=== PATIENT | female | born 1965 | race Caucasian/White ===

== ENCOUNTER → 2016-09-14 | Outpatient (CLI) | payer MEDICARE ==
--- NOTE | 2016-09-14 11:30 | MR ---
MR brain with and without contrast HISTORY: Headaches, aneurysm Multiplanar multisequence and postcontrast images obtained through the brain following 15 cc MultiHan ce IV. Correlation to prior brain MR and MRA 07 August 2009 There is no restricted diffusion. There is no hemorrhage or hydrocephalus. Brain signal is essentiall y stable, couple of hyperintensities are present within the deep white matter as on prior exam. There is no mass effect or midline shift. Mild inflammatory change present in the ethmoid air cells. The o rbits are stable. Cerebellopontine angles, corpus callosum, pituitary, cervical medullary junction ar e stable and unremarkable there is no abnormal enhancement following contrast administration, normal vascular enhancement is noted. IMPRESSION: No significant abnormalities evident. Essentially stable exam..
--- NOTE | 2016-09-14 11:45 | MR ---
EXAMINATION TYPE: MR angio head wo con DATE OF EXAM: 09/14/2016 10:52 AM COMPARISON: MR brain same date and prior MRA brain dated 07 August 2009 HISTORY: Severe headaches, cerebral aneurysm TECHNIQUE: Time of flight images focusing on the [place] were performed without contrast. FINDINGS: Three-dimensional reconstructions. Exam is stable. No evident aneurysm or significant stenosis, no vascular malformation evident. IMPRESSION: Stable MRA brain, no significant abnormalities evident
== END | disposition home or self-care (01) ==
LOC: RADMRIMAIN 10:01
PROVIDERS: ATTEND Psychiatry & Neurology Neurology
DX: R51 Headache (principal)
CPT/HCPCS: 70544; 70553; A9577

== ENCOUNTER → 2017-02-10 | Outpatient (CLI) | payer MEDICARE ==
[2017-02-10 16:41] LABS: Anion Gap 12 mmol/L; Blood Urea Nitrogen 8 mg/dL (7-17); Calcium 9.9 mg/dL (8.4-10.2); Carbon Dioxide 21 mmol/L (22-30); Chloride 110 mmol/L (98-107); Creatine Kinase 59 U/L (30-135); Glucose 107 mg/dL (74-99); Non-African American GFR(MDRD) >60 (>60 ml/min/1.73 sqM); Potassium 4.3 mmol/L (3.5-5.1); Sodium 143 mmol/L (137-145)
[2017-02-10 17:29] LABS: Vitamin B12 481 pg/mL (239-931)
[2017-02-10 19:43] LABS: Rheumatoid Factor, Qnt <9 IU/mL (<12)
[2017-02-10 20:56] LABS: Hemoglobin A1C 5.7 % (4.2-6.1)
[2017-02-11 01:02] LABS: Treponemal Ab Non-Reactive (Non-Reactive)
[2017-02-11 01:47] LABS: ANA w/Reflex to Titer NEGATIVE (NEGATIVE)
== END | disposition home or self-care (01) ==
LOC: LABWHC1 15:52
PROVIDERS: ATTEND Psychiatry & Neurology Neurology
DX: M19.90 Unspecified osteoarthritis, unspecified site (principal); G62.9 Polyneuropathy, unspecified; M79.7 Fibromyalgia; R20.0 Anesthesia of skin; M25.50 Pain in unspecified joint
CPT/HCPCS: 36415; 80048; 82550; 82607; 82747; 83036; 84165; 84443; 85652; 86038; 86225; 86431; 86618; 86780

== ENCOUNTER → 2018-07-19 | Outpatient (CLI) | payer MEDICARE ==
--- NOTE | 2018-07-19 08:22 | US ---
EXAMINATION TYPE: US abdomen limited DATE OF EXAM: 07/19/2018 COMPARISON: CT abdomen December 26, 2008 CLINICAL HISTORY: R74.8 Abnormal Levels Of Other Serum Enzymes. Abn labs, NPO, GB removed EXAM MEASUREMENTS: Liver Length: 16.3 cm CHD: 0.4 cm Right Kidney: 11.0 x 4.3 x 3.9 cm Pancreas: Tail obscured by overlying bowel gas Liver: Increased attenuation, decreased visualization of vessels suggestive of fatty infiltrate Gallbladder: Surgically absent Evidence for sonographic Kelly's sign: neg CBD: Obscured by overlying bowel gas CHD: wnl Right Kidney: wnl Visualized pancreas is heterogeneous. Portions of the head and tail are suboptimally evaluated on una ges saved as are vascular by overlying bowel gas per technologist. Visualized liver is heterogeneousl y hyperechoic. Evaluation for focal masses is suboptimal due to the heterogeneity. Gallbladder is ian gically absent. IMPRESSION: Heterogeneous hyperechoic appearance of liver could reflect product of diffuse fatty infi ltration or underlying hepatocellular disease. No surrounding ascites is seen. Imaging guided random biopsy for tissue analysis can be performed if desired.
== END ==
LOC: RADUSWWP 07:51
DX: R74.8 Abnormal levels of other serum enzymes (principal)
CPT/HCPCS: 76705

== ENCOUNTER 2018-10-09 11:32 | Day surgery (SDC) | payer MEDICARE ==
[~2018-10-09 11:32] MED LIST: DEXAMETHASONE SOD PHOSPHATE 10 MG/ML 1 ML VIAL IV ONE; HYDROmorphone 0.5 MG/0.5 ML SYRINGE IVP PRN; LACTATED RINGERS 1,000 ML IV SCH; MORPHINE SULFATE 4 MG/ML SYRINGE IV PRN; ONDANSETRON 4 MG/2 ML VIAL IVP ONE; Pre Op ABX Message 1 EACH MISC MISCELLANE ONE
[2018-10-09 12:06] VITALS: RESP 16; TEMP 97.9
[2018-10-09 12:07] LABS: Glucose,Whole Blood 104 mg/dL (75-99)
[2018-10-09] MEDS ORDERED: DEXAMETHASONE SOD PHOS (MDV) 100 MG/10 ML VIAL IVP ONE (12:08)
[2018-10-09] MEDS ORDERED: ONDANSETRON 4 MG/2 ML VIAL IVP ONE (12:08)
[2018-10-09] MEDS ORDERED: LIDOCAINE 1% 20 ML VIAL (10MG/ML) FOR IV START INTRADERMA ONE (12:09)
[2018-10-09] MEDS ORDERED: fentaNYL (PF) 50 MCG/ML 2 ML AMP ONE (13:10)
[2018-10-09] MEDS ORDERED: PROPOFOL 10 MG/ML 20 ML VIAL IV ONE (13:10)
[2018-10-09] MEDS ORDERED: MIDAZOLAM 2 MG/2 ML VIAL ONE (13:10)
[2018-10-09] MEDS ORDERED: LIDOCAINE 1% INJ 10MG/ML (20 ML MDV) ONE (13:10)
[2018-10-09] MEDS ORDERED: LIDOCAINE 2% INJ 20 MG/ML SQ ONE (13:29)
[2018-10-09 14:09] VITALS: BP 112/68; PULSE 87
--- NOTE | 2018-10-09 18:54 | P.OP ---
Date of Procedure: 10/09/18 Procedure(s) Performed: PREOPERATIVE DIAGNOSES: 1. Right carpal tunnel syndrome POSTOPERATIVE DIAGNOSES: 1. Right carpal tunnel syndrome PROCEDURES PERFORMED: 1. Right open carpal tunnel release ANESTHESIA: Local plus IV sedation DEPUTY PROSECUTING ATTORNEY: None COMPLICATIONS: None ESTIMATED BLOOD LOSS: Less than 10 cc TOURNIQUET: 10 minutes DISPOSITION: To post-anesthesia care unit INDICATIONS: Mrs. Breaux is a 52-year-old female with a history of carpal tunnel syndrome, who presents today for carpal tunnel release. She has a history of recent distal radius fracture which is healed uneventfully except for the presence of carpal tunnel syndrome. The risks and potential complications of surgery have been discussed at length. The consent form has been signed. PROCEDURE: The patient was taken to the operating room after appropriate consent was obtained. IV sedation was initiated and the right upper extremity was prepared and draped in the usual aseptic fashion with Hibiclens prep. The path of the incision and deeper tissues were injected with 2% Lidocaine solution. A total of approximately 10 cc was used. Exsanguination of the limb with an Esmarch bandage was accomplished and the tourniquet was inflated to 200 mm Hg. The skin was then incised with a scalpel just through the dermis into the subcutaneous tissue. The location of the incision was at the base of the palm, at the radial border of the fourth ray. Blunt spreading using dissecting scissors was performed down to palmar fascia, which was then split using a #15 blade scalpel, revealing the underlying transverse carpal ligament. The transverse carpal ligament was incised with this blade under direct visualization at its ulnar border until it was fully released. The contents of the carpal tunnel were normal. No aberrant muscles, bone, tenosynovitis, or tumors were noted. The proximal and distal fascial releases were completed using gentle push technique with small dissecting scissors. Complete release was confirmed by visualization and palpation. Hemostasis was obtained with a bipolar electrocautery device as well as pressure over the wound after deflation of the tourniquet. Closure was performed with 4-0 nylon sutures in vertical mattress technique. Sterile dressing and light compressive dressing were applied and the patient was taken to recovery room in stable condition. Sponge and needle count were correct.
== END 2018-10-09 14:21 | disposition home or self-care (01) ==
LOC: OR 11:32
PROVIDERS: ATTEND Orthopaedic Surgery
DX: G56.01 Carpal tunnel syndrome, right upper limb (principal); I10 Essential (primary) hypertension; E78.5 Hyperlipidemia, unspecified; M19.90 Unspecified osteoarthritis, unspecified site; K21.9 Gastro-esophageal reflux disease without esophagitis; G43.719 Chronic migraine without aura, intractable, without status migrainosus; M79.7 Fibromyalgia; F17.200 Nicotine dependence, unspecified, uncomplicated; Z87.81 Personal history of (healed) traumatic fracture; Z79.84 Long term (current) use of oral hypoglycemic drugs; Z79.1 Long term (current) use of non-steroidal anti-inflammatories (NSAID); Z79.891 Long term (current) use of opiate analgesic; Z79.899 Other long term (current) drug therapy; Z88.8 Allergy status to other drugs, medicaments and biological substances
CPT/HCPCS: 64721; J2001 ×2; J2250; J2405; J3010; J1100; J2704

== ENCOUNTER → 2018-10-18 | Outpatient (CLI) | payer MEDICARE ==
[2018-10-18 20:26] LABS: Albumin 4.5 g/dL (3.80-4.90); Albumin/Globulin Ratio 2.25 (1.60-3.17); Bilirubin, Conjugated 0.2 mg/dL (0.20-0.40); Bilirubin,Unconjugated 0.4 mg/dL; Total Bilirubin 0.6 mg/dL (0.2-1.2); Total Protein 6.5 g/dL (6.2-8.2)
== END | disposition home or self-care (01) ==
LOC: LABWHC1 12:13
DX: R74.8 Abnormal levels of other serum enzymes (principal)
CPT/HCPCS: 36415; 80076

== ENCOUNTER → 2019-04-19 | Outpatient (CLI) | payer MEDICARE ==
[2019-04-19 12:38] LABS: Basophils # (A) 0.1 k/uL (0-0.2); Basophils % (A) 1 %; Eosinophils # (A) 0.2 k/uL (0-0.7); Eosinophils % (A) 2 %; HCT 47.2 % (34.0-46.0); HGB 15.7 gm/dL (11.4-16.0); Lymphocytes % (A) 41 %; MCH 30.2 pg (25.0-35.0); MCHC 33.3 g/dL (31.0-37.0); MCV 90.6 fL (80.0-100.0); Mean Platelet Volume 5.7; Monocytes # (A) 0.4 k/uL (0-1.0); Monocytes % (A) 4 %; Neutrophils # (A) 4.9 k/uL (1.3-7.7); Neutrophils % (A) 50 %; Platelet Count 344 k/uL (150-450); RBC 5.21 m/uL (3.80-5.40); RDW 12.5 % (11.5-15.5); WBC 9.7 k/uL (3.8-10.6)
[2019-04-19 12:56] LABS: INR 0.9 (<1.2); Prothrombin Time 9.7 sec (9.0-12.0)
[2019-04-19 21:06] LABS: African American GFR (CKD) 114.6 (60.0-200.0); Albumin 4.7 g/dL (3.80-4.90); Albumin/Globulin Ratio 2.24 (1.60-3.17); Anion Gap 8.5 mmol/L (4.00-12.00); Calcium 9.7 mg/dL (8.7-10.3); Carbon Dioxide 25.5 mmol/L (21.6-31.8); Globulin 2.1 g/dL (1.6-3.3); Potassium 4.7 mmol/L (3.5-5.5); Total Bilirubin 0.5 mg/dL (0.3-1.2); Total Protein 6.8 g/dL (6.2-8.2)
[2019-04-19 21:22] LABS: Protein, Total 6.9 g/dL (6.2-8.2)
[2019-04-19 22:05] LABS: Iron Saturation 27.06 (12.00-45.00)
[2019-04-19 22:15] LABS: Ferritin 231.7 ng/mL (10.0-291.0)
[2019-04-20 12:26] LABS: Albumin 4.39 g/dL (3.80-4.90); Gamma Globulin 0.35 g/dL (0.70-1.50)
[2019-04-20 12:47] LABS: Ceruloplasmin 32.1 mg/dL (20.0-60.0)
[2019-04-20 14:00] LABS: Liver/Kidney Microsome Antibod 1.3 UNITS (<=20)
== END | disposition home or self-care (01) ==
LOC: LABWHC1 12:06
PROVIDERS: ATTEND Nurse Practitioner
DX: R74.8 Abnormal levels of other serum enzymes (principal)
CPT/HCPCS: 36415; 80053; 82103; 82390; 82728; 83516; 83540; 83550; 84165; 85025; 85610; 86038; 86376

== ENCOUNTER → 2019-04-20 | Outpatient (CLI) | payer MEDICARE | END | disposition home or self-care (01) | LOC: LABWHC1 13:12 | PROVIDERS: ATTEND Nurse Practitioner | DX: R74.8 Abnormal levels of other serum enzymes (principal) | CPT/HCPCS: 36415; 81596 ==

== ENCOUNTER → 2020-05-08 | Outpatient (CLI) | payer MEDICARE ==
[2020-05-08 20:36] LABS: C-Peptide 2.76 ng/mL (0.81-3.85)
--- NOTE | 2020-05-12 09:23 | MM ---
Reason for exam: screening (asymptomatic). Last mammogram was performed 3 years and 10 months ago. History: Patient is postmenopausal and is nulliparous. Taking estrogen for 1 year beginning at age 38. Taking progesterone. Physical Findings: A clinical breast exam by your physician is recommended on an annual basis and results should be correlated with mammographic findings. MG 3D Screening Mammo W/Cad Bilateral CC and MLO view(s) were taken. Prior study comparison: July 01, 2016, bilateral MG 3d screening mammo w/cad. May 31, 2015, bilateral MG screening mammo w CAD. There are scattered fibroglandular densities. Benign appearing bilateral calcifications. No significant changes when compared with prior studies. ASSESSMENT: Benign, BI-RAD 2 RECOMMENDATION: Routine screening mammogram of both breasts in 1 year.
== END | disposition home or self-care (01) ==
LOC: RADMAMWWP 11:46
PROVIDERS: ATTEND Internal Medicine Geriatric Medicine
DX: Z12.31 Encounter for screening mammogram for malignant neoplasm of breast (principal); E11.9 Type 2 diabetes mellitus without complications; R10.84 Generalized abdominal pain; R94.5 Abnormal results of liver function studies; K75.81 Nonalcoholic steatohepatitis (NASH)
CPT/HCPCS: 77063; 77067; 82947; 83519; 83525; 84681; 86341

== ENCOUNTER → 2022-02-24 | Outpatient (CLI) | payer MEDICARE ==
--- NOTE | 2022-02-24 19:30 | BD ---
EXAMINATION TYPE: Axial Bone Density DATE OF EXAM: 02/24/2022 COMPARISON: NONE CLINICAL HISTORY: 56 years year old Female. ICD-10 CODE: M81.0 age related osteoporosis Height: 63.2 IN Weight: 165 LBS FRAX RISK QUESTIONS: Family History (Parent hip fracture): YES FATHER History of Fracture in Adulthood: RT WRIST FX AGE 52;RT ANKLE FX AGE 45 Secondary Osteoporosis: 3. Menopause before 45: TOTAL HYST AGE 38 Current Tobacco Use: YES RISK FACTORS HISTORY OF: History of Wrist Fracture: RT WRIST AGE 52 Active: YES Postmenopausal woman: TOTAL HYST AGE 38 Take estrogen and/or progesterone medications: NOT NOW How long: TOOK FOR 1 YEAR MEDICATIONS: Additional Medications: CALCIUM, INSULIN, EXAM MEASUREMENTS: Bone mineral densitometry was performed using the Baifendian System. Bone mineral density as measured about the Lumbar spine is: ----- L1-L4(G/cm2): 1.108 T Score Values are as follows: ----- L1: -0.7 ----- L2: -0.6 ----- L3: -0.6 ----- L4: -0.5 ----- L1-L4: -0.6 Bone mineral density BASELINE Bone mineral density about the R hip (g/cm2): 0.784 Bone mineral density about the L hip (g/cm2): 0.957 T Score values are as follows: -----R Neck: -1.8 -----L Neck: -0.6 -----R Total: -0.6 -----L Total: 0.6 Bone mineral density BASELINE FRAX%s: The graph provided illustrates a 25.0 chance for a major osteoporotic fx and a 2.8 chance for the hips probability for fx in 10 years time. IMPRESSION: Osteopenia (T Score between -2.5 and -1). There is slightly increased risk of fracture and the patient may be considered for treatment. Re-Screen 2-5 years. NOTE: T-SCORE=SD OF THE YOUNG ADULT MEAN.
--- NOTE | 2022-02-25 07:45 | MM ---
Reason for Exam: Screening (asymptomatic). Last mammogram was performed 1 year(s) and 10 month(s) ago. Patient History: Menarche at age 12. Patient has no children. Left ovary removed at age 38. Right ovary removed at age 38. Hysterectomy at age 38. Postmenopausal. Estrogen, starting at age 38 for 1 year. Used Progesterone. Risk Values: Danica 5 year model risk: 1.4%. NCI Lifetime model risk: 8.9%. Prior Study Comparison: 05/31/2015 Bilateral Screening Mammogram, [facility]. 07/01/2016 Bilateral Screening Mammogram, [facility]. 05/08/2020 Bilateral Screening Mammogram, [facility]. Tissue Density: There are scattered fibroglandular densities. Findings: Analyzed By CAD. There is no suspicious group of microcalcifications or new suspicious mass in either breast. Benign-appearing calcifications bilaterally. No significant change from prior examinations. Overall Assessment: Benign, BI-RAD 2 Management: Screening Mammogram of both breasts in 1 year. A clinical breast exam by your physician is recommended on an annual basis and results should be correlated with mammographic findings. Electronically signed and approved by: Josh Richter D.O.
== END | disposition home or self-care (01) ==
LOC: RADMAMWWP 07:16
PROVIDERS: ATTEND Internal Medicine Geriatric Medicine
DX: Z12.31 Encounter for screening mammogram for malignant neoplasm of breast (principal); M85.89 Other specified disorders of bone density and structure, multiple sites
CPT/HCPCS: 77063; 77067; 77080

== ENCOUNTER 2022-03-09 06:58 | Day surgery (SDC) | payer MEDICARE ==
[2022-03-05 08:43] VITALS: BMI 29.0
[~2022-03-09 06:58] MED LIST changes: -DEXAMETHASONE SOD PHOSPHATE 10 MG/ML 1 ML VIAL IV ONE; -HYDROmorphone 0.5 MG/0.5 ML SYRINGE IVP PRN; -MORPHINE SULFATE 4 MG/ML SYRINGE IV PRN; -ONDANSETRON 4 MG/2 ML VIAL IVP ONE; -Pre Op ABX Message 1 EACH MISC MISCELLANE ONE
[2022-03-09 07:32] LABS: Glucose,Whole Blood 139 mg/dL (70-110)
[2022-03-09 07:34] VITALS: TEMP 98
[2022-03-09] MEDS ORDERED: PROPOFOL 10 MG/ML 20 ML VIAL IV ONE (08:32)
--- NOTE | 2022-03-09 08:52 | P.PCN ---
Date of Procedure: 03/09/22 Procedure(s) Performed: BRIEF HISTORY: Patient is a 56-year-old pleasant white female scheduled for an elective colonoscopy as a part of positive cologuard. PROCEDURE PERFORMED: Colonoscopy with snare polypectomy. PREOPERATIVE DIAGNOSIS: Positive cologuard. IV sedation per Anesthesia. PROCEDURE: After informed consent was obtained, the patient, was brought into the endoscopy unit. IV sedation was administered by Anesthesia under continuous monitoring. Digital rectal examination was normal. Initially the Olympus CF-160 flexible video colonoscope was then inserted in the rectum, gradually advanced into the cecum without any difficulty. Careful examination was performed as the scope was gradually being withdrawn. Ileocecal valve and the appendiceal orifice were visualized and appeared normal. Prep was excellent. Mucosa of the cecum, appeared normal. In the ascending colon there was a 1 cm broad-based polyp removed by snare polypectomy. Rest of the ascending colon, transverse colon, descending colon, sigmoid colon, and rectum appeared normal. In the proximal rectum there was a 3 mm and 7 mm polyp removed by snare polypectomy. Retroflexion was performed in the rectum and no lesions were seen. The patient tolerated the procedure well. IMPRESSION: 1 cm broad-based ascending colon polyp status post polypectomy 3 mm and 7 mm proximal rectal polyp status post-snare polypectomy RECOMMENDATIONS: Findings of this examination were discussed with the patient as well as her family. She was advised to follow with the biopsy results. If the biopsy results adenoma she can have a repeat colonoscopy in 3 years.
[2022-03-09 09:02] LABS: Glucose,Whole Blood 138 mg/dL (70-110)
[2022-03-09 09:15] VITALS: RESP 18
[2022-03-09 10:06] VITALS: BP 134/80; PULSE 80
== END 2022-03-09 09:50 | disposition home or self-care (01) ==
LOC: ORWHC2ENDO 06:58
PROVIDERS: ATTEND Internal Medicine Gastroenterology
DX: D12.2 Benign neoplasm of ascending colon (principal); K62.1 Rectal polyp; E11.69 Type 2 diabetes mellitus with other specified complication; E78.5 Hyperlipidemia, unspecified; I10 Essential (primary) hypertension; Z88.8 Allergy status to other drugs, medicaments and biological substances; K76.0 Fatty (change of) liver, not elsewhere classified; Z79.899 Other long term (current) drug therapy; Z90.49 Acquired absence of other specified parts of digestive tract; Z79.4 Long term (current) use of insulin; F17.210 Nicotine dependence, cigarettes, uncomplicated; Z83.3 Family history of diabetes mellitus; Z82.49 Family history of ischemic heart disease and other diseases of the circulatory system; Z83.49 Family history of other endocrine, nutritional and metabolic diseases; Z80.8 Family history of malignant neoplasm of other organs or systems
CPT/HCPCS: 88305; 45385; J2704

== ENCOUNTER → 2023-06-06 | Outpatient (CLI) | payer MEDICARE ==
--- NOTE | 2023-06-06 08:12 | MM ---
Reason for Exam: Screening (asymptomatic). Last mammogram was performed 1 year(s) and 3 month(s) ago. Patient History: Menarche at age 12. Patient has no children. Left ovary removed at age 38. Right ovary removed at age 38. Hysterectomy at age 38. Postmenopausal. Estrogen, starting at age 38 for 1 year. Used Progesterone. Risk Values: Danica 5 year model risk: 1.4%. NCI Lifetime model risk: 8.7%. Prior Study Comparison: 07/01/2016 Bilateral Screening Mammogram, [facility]. 05/08/2020 Bilateral Screening Mammogram, [facility]. 02/24/2022 Bilateral MG 3D screening mammo w/cad, [facility]. Tissue Density: There are scattered fibroglandular densities. Findings: Analyzed By CAD. There is no suspicious group of microcalcifications or new suspicious mass in either breast. Benign calcifications within both breasts. Overall Assessment: Benign, BI-RAD 2 Management: Screening Mammogram of both breasts in 1 year. A clinical breast exam by your physician is recommended on an annual basis and results should be correlated with mammographic findings. Note on Danica scores and lifetime risk: 1. A Danica score greater than 3% is considered moderate risk. If this is the case, consider specialist referral to assess eligibility for a risk reducing agent. If overall lifetime risk for the development of breast cancer is 20% or higher, the patient may qualify for future screening with alternating mammogram and breast MRI. Electronically signed and approved by: Josh Richter D.O.
== END | disposition home or self-care (01) ==
LOC: RADMAMWWP 07:45
PROVIDERS: ATTEND Internal Medicine Geriatric Medicine
DX: Z12.31 Encounter for screening mammogram for malignant neoplasm of breast (principal); Z78.0 Asymptomatic menopausal state
CPT/HCPCS: 77063; 77067